=== PATIENT | female | born 1990 | race Hispanic/Latino ===

== ENCOUNTER 2018-05-15 20:50 | Day surgery (SDC) | payer BC, OTHER ==
[2018-05-15 21:24] VITALS: BP 145/73; TEMP 98.6; BMI 45.3
[2018-05-15] MEDS: Lactated Ringer's 1,000 ML IV SCH ×2 (21:35→22:20)
[2018-05-15] MEDS ORDERED: Promethazine HCl 25 MG/ML VIAL IM/IV PRN (21:49)
== END 2018-05-15 23:45 | disposition home or self-care (01) ==
LOC: L&D/OP 20:50
PROVIDERS: ATTEND Obstetrics & Gynecology
DX: O99.89 Other specified diseases and conditions complicating pregnancy, childbirth and the puerperium (principal); R10.2 Pelvic and perineal pain; R11.0 Nausea; Z3A.36 36 weeks gestation of pregnancy
CPT/HCPCS: 96360; 96361; 96375; 99282; J2550

== ENCOUNTER 2018-05-21 16:38 | Inpatient (IN) | payer OTHER ==
[~2018-05-21 16:38] MED LIST: Ketorolac Tromethamine 30 MG/ML VIAL ONE; Ondansetron PF 4 MG/2 ML Vial ONE; PHENYLEPHRINE-NS 100 MCG/ML 10 ML SYRINGE ONE
[2018-05-21] MEDS ORDERED: Zolpidem Tartrate 5 MG TAB PO PRN (16:48)
[2018-05-21] MEDS ORDERED: Promethazine HCl 25 MG/ML VIAL IM PRN ×2 (16:48→22:59)
[2018-05-21] MEDS ORDERED: Ondansetron PF 4 MG/2 ML Vial IVP PRN ×2 (16:48→22:51)
[2018-05-21] MEDS ORDERED: Bicitra 30 ML UDCUP PO SCH (17:00)
[2018-05-21] MEDS ORDERED: CEFAZOLIN/Water 2 GM/20 ML SYRINGE SLOW IVP SCH (17:00)
[2018-05-21] MEDS: Lactated Ringer's 1,000 ML IV SCH ×2 (17:20→18:42)
[2018-05-21 17:27] VITALS: BMI 45.3
[2018-05-21 17:39] LABS: Hemoglobin 11.5 g/dL (12.0-16.0); Mean Corpuscular HGB CONC 31.4 g/dL (32.0-36.0); Mean Corpuscular Hemoglobin 27.7 pg (27.0-31.0); Mean Corpuscular Volume 88.2 fL (78.0-98.0); Mean Platelet Volume 9.5 fL (7.4-10.4); Platelet Count 328 thou/uL (130-400); RBC Distribution Width 12.9 % (11.5-14.5); Red Blood Cell (RBC) Count 4.14 mill/uL (4.20-5.40); White Blood Cell (WBC) Count 12.6 thou/uL (4.8-10.8)
[2018-05-21 18:13] LABS: Syphilis Antibody Nonreactive (Nonreactive); Syphilis Antibody Index 0.06 S/CO (<1.00 Non-Reactive)
[2018-05-21 18:14] LABS: HBSAg Index 0.19 S/CO (0-0.99); Hep B Surf Ag Non-Reactive S/CO (NonReactive)
[2018-05-21] MEDS ORDERED: Milk Of Magnesia 30 ML UDCUP ONE (18:15)
[2018-05-21] MEDS ORDERED: Morphine PF 1 MG/ML SYR ONE (19:11)
[2018-05-21] MEDS ORDERED: Bupivacaine 0.75% W/DEXTROSE 8.25% 2 ML AMP ONE (19:11)
[2018-05-21] MEDS ORDERED: PHENYLEPHRINE-NS 100 MCG/ML 10 ML SYRINGE ONE (19:11)
[2018-05-21] MEDS ORDERED: Lidocaine 1% PF 5 ML VIAL ONE (19:11)
[2018-05-21] MEDS ORDERED: Oxytocin 10 UNITS/ML VIAL ONE ×2 (19:11→22:10)
[2018-05-21] MEDS ORDERED: ePHEDrine/0.9% NaCl/PF SYRINGE 50 mg/10 ml ONE (19:11)
[2018-05-21] MEDS ORDERED: Ondansetron PF 4 MG/2 ML Vial ONE (19:11)
[2018-05-21] MEDS ORDERED: Ketorolac Tromethamine 30 MG/ML VIAL ONE (19:12)
[2018-05-21] MEDS ORDERED: CEFAZOLIN/Water 2 GM/20 ML SYRINGE ONE (21:09)
[2018-05-21] MEDS ORDERED: Fentanyl 100 MCG/2 ML VIAL ONE (22:07)
[2018-05-21] MEDS ORDERED: diphenhydrAMINE 25 MG CAP PO PRN (22:51)
[2018-05-21] MEDS ORDERED: Lanolin Ointment 7 GM TUBE TOP PRN (22:51)
[2018-05-21] MEDS ORDERED: traMADol HCl 50 MG TAB PO PRN (22:54)
[2018-05-21] MEDS ORDERED: diphenhydrAMINE 50 MG/ML VIAL IVP PRN (22:59)
[2018-05-21] MEDS ORDERED: Naloxone HCl 0.4 mg/ml Vial IVP PRN ×2 (22:59)
[2018-05-21] MEDS ORDERED: Hydrocerin (Eucerin) Cream 120 gm Jar TOP PRN (22:59)
[2018-05-21] MEDS ORDERED: Promethazine HCl 25 MG SUPP PR PRN (22:59)
[2018-05-21] MEDS ORDERED: Naloxone HCl 0.4 mg/ml Vial IV PRN (22:59)
[2018-05-21] MEDS ORDERED: Communication Order-Pharmacy FS SCH (23:00)
[2018-05-21] MEDS ORDERED: NS / Oxytocin 40 units/1000ml 1,000 ML IV SCH (23:00)
[2018-05-21] MEDS ORDERED: diphenhydrAMINE 50 MG/ML VIAL ONE (23:48)
[2018-05-22] MEDS ORDERED: Morphine 4 MG/ML VIAL SLOW IVP PRN (00:16)
[2018-05-22] MEDS ORDERED: Morphine 4 MG/ML VIAL ONE (00:20)
[2018-05-22] MEDS: Ondansetron PF 4 MG/2 ML Vial IVP PRN ×2 (01:58→12:27)
--- NOTE | 2018-05-22 05:33 | OP ---
DATE OF SERVICE: 05/21/2018 PREOPERATIVE DIAGNOSES: 1. A 27-year-old G4, P1-0-2-1, at 37 weeks and 3 days with premature rupture of membranes, clear flu id at midnight that is approximately 22 hours at the time of delivery. 2. GBS negative. 3. Elevated body mass index greater than 36. 4. History of low transverse section for cephalopelvic disproportion. Plan for repeat cesa rean. 5. Anemia of . POSTOPERATIVE DIAGNOSES: 1. A 27-year-old G4, P1-0-2-1, at 37 weeks and 3 days with premature rupture of membranes, clear flu id at midnight that is approximately 22 hours at the time of delivery. 2. GBS negative. 3. Elevated body mass index greater than 36. 4. History of low transverse section for cephalopelvic disproportion. Plan for repeat cesa rean. 5. Anemia of . 6. Liveborn female with Apgars and weight unavailable at the time of dictation. CLINICAL HISTORY: This patient is a 27-year-old female, G4, P1-0-2-1 who presented to [facility] at 37 weeks and 3 days with complaint of leakage of fluid. She originally had several leakage o f fluid half and hour prior, but upon further investigation, she noted a rupture of membranes at appr oximately midnight the night prior. The patient was evaluated and had a positive Nitrazine test and amniotic fluid index of 3.4 with a normal Doptones. The patient was then advised to go to labor and delivery for a planned repeat low transverse section. Upon arrival, the patient was noted t o have a category 1 tracing without any noted contractions. She had been checked in the office and h er exam was 3 cm, 80% effaced, and -1 station. DETAILS OF PROCEDURE: The patient was taken to the operating room where spinal anesthesia was obtain ed. She was laid in the supine position with her legs with a leftward tilt and she was prepped and d raped in the usual sterile fashion. A Dodge catheter was placed and draining to gravity. After test ing for adequate anesthesia, an incision was made over her previous Pfannenstiel incision and this wa s carried down to the fascia. The fascia was nicked in the midline and then extended bilaterally. Bijal shay Aniya clamps were used x2 to elevate the superior fascial borders and these were released from th e superior rectus muscles with a combination of sharp and blunt dissection. The same was done on the posterior portion of the fascia. The rectus muscles were then in the midline and the merary toneum was then breached. The incision was then extended with combination of traction and sharp diss ection. The bladder flap was then created with Metzenbaums and the [place] forceps and the bladder w as reflected downwards. The incision was then made over a very thin window on the lower uterine segm ent and the clear fluid was noted. The incision was extended and the baby's head was then delivered through the incision by using the surgeon's hand and then traction and pressure. There was a nuchal cord that was reduced easily at the incision. The anterior shoulder followed by and the posterior sh oulder followed by the remainder of the 's body was delivered. The infant cried spontaneously. The cord was doubly clamped and cut and the cord blood was obtained. The was handed off to the team in attendance to the delivery. The uterus was then exteriorized and cleansed of al l debris and then the incision was closed in a running locking fashion and then an imbricating suture was then performed with 0 Vicryl. The bladder flap was then reapproximated with a 3-0 plain gut sut ure with excellent hemostasis. The gutters were cleansed of all debris and the Seprafilm was placed over the anterior surface of the uterus. The uterus was then placed back into the abdomen. The merary toneum was closed in a running fashion. The muscles were reapproximated with interrupted figure-of-e ight sutures and the prefascial gutters were cleansed of all debris and the fascia was then closed in a running fashion and the subcutaneous tissues were irrigated copiously and bleeding was corrected w ith Bovie cautery. The subcutaneous tissues were then closed with several interrupted sutures to prabhakar pproximate the subcutaneous layer. The skin was then closed with a 4-0 Monocryl and reinforced with Steri-Strips and Mastisol and a Tegaderm-Telfa pressure dressing. Patient tolerated the procedure we ll and was able to recover on labor and delivery in satisfactory condition with her infant. Again, t he infant was a female, weight is unavailable at the time of dictation. Apgars were 9 and 9 at one a nd five minutes respectively. There were no other issues surrounding this delivery. Estimated blood loss was approximately 300 mL. QBL was not calculated at the time of dictation. There were no othe r issues surrounding this delivery.
[2018-05-22] MEDS: Ketorolac Tromethamine 30 MG/ML VIAL IVP PRN ×2 (06:06→14:10)
[2018-05-22] MEDS ORDERED: Adacel (T-DAP) 0.5 ML VIAL IM ONE (09:00)
[2018-05-22] MEDS: Prenatal Vitamin 1 TAB PO SCH (09:22)
[2018-05-22] MEDS: Docusate Calcium (SURFAK) 240 MG CAP PO SCH ×2 (09:22→20:38)
[2018-05-22] MEDS ORDERED: Sodium Chloride 0.9% 10 ML ONE ×2 (12:18→14:02)
[2018-05-22] MEDS: Simethicone Chewable 80 MG TAB PO PRN (20:38)
[2018-05-22] MEDS: Ibuprofen 800 MG TAB PO SCH (20:38)
[2018-05-22] MEDS: traMADol HCl 50 MG TAB PO PRN (20:38)
[2018-05-22] MEDS ORDERED: Zolpidem Tartrate 5 MG TAB PO PRN (21:00)
[2018-05-23] MEDS: traMADol HCl 50 MG TAB PO PRN ×6 (02:18→22:24)
[2018-05-23] MEDS: Ibuprofen 800 MG TAB PO SCH ×3 (04:52→22:23)
[2018-05-23] MEDS ORDERED: Ibuprofen 800 MG TAB PO SCH (06:00)
[2018-05-23] MEDS: Simethicone Chewable 80 MG TAB PO PRN ×2 (09:51→17:52)
[2018-05-23] MEDS: Prenatal Vitamin 1 TAB PO SCH (09:51)
[2018-05-23] MEDS: Docusate Calcium (SURFAK) 240 MG CAP PO SCH ×2 (09:51→21:11)
[2018-05-24] MEDS: traMADol HCl 50 MG TAB PO PRN ×4 (02:38→14:07)
[2018-05-24] MEDS: Ibuprofen 800 MG TAB PO SCH ×2 (06:05→14:08)
[2018-05-24] MEDS: Prenatal Vitamin 1 TAB PO SCH (10:08)
[2018-05-24] MEDS: Docusate Calcium (SURFAK) 240 MG CAP PO SCH (10:09)
[2018-05-24 11:52] VITALS: BP 112/52; TEMP 98.3
== END 2018-05-24 14:45 | disposition home or self-care (01) | DRG 787 ==
LOC: L&D 16:38 → 3SW 05-22 00:57
PROVIDERS: ADMIT Obstetrics & Gynecology; ATTEND Obstetrics & Gynecology
PROC: 10D00Z1 Extraction of Products of Conception, Low, Open Approach (ICD-10-PCS; principal; 2018-05-21)
DX: O42.02 Full-term premature rupture of membranes, onset of labor within 24 hours of rupture (principal); Z68.42 Body mass index [BMI] 45.0-49.9, adult; O99.214 Obesity complicating childbirth; E66.9 Obesity, unspecified; Z3A.37 37 weeks gestation of pregnancy; Z37.0 Single live birth; O34.211 Maternal care for low transverse scar from previous cesarean delivery; O99.02 Anemia complicating childbirth; D64.9 Anemia, unspecified; O69.81X0 Labor and delivery complicated by cord around neck, without compression, not applicable or unspecified
CPT/HCPCS: 51702; 85027; 86780; 86850; 86900; 86901; 87340; J1200; J1885; J2001; J2270; J2274; J2405; J2590; J3010; J3490

== ENCOUNTER 2019-12-16 20:54 | Emergency (ER) | payer SELFPAY ==
[2019-12-16 21:25] LABS: Bacteria/HPF None Seen HPF (None Seen); Bilirubin Negative (Negative); Blood, Urine Negative (Negative); Clarity Clear (Clear); Glucose, Urine (Dipstick) Normal (Negative); Leukocyte Negative Leu/uL (Negative); Nitrite Negative (Negative); Protein, Urine (Dipstick) 50 mg/dL (Neg-Trace); WBC/HPF 0-3 HPF (0-3)
[2019-12-16 21:26] LABS: Pregnancy Test - Urine (BHCG) POSITIVE (Negative); Pregu Control Background? CLEAR/WHITE (CLR/WHITE); Pregu Control Bar Appear? YES (CONTROL BAR); Specific Gravity 1.038 (1.002-1.036)
[2019-12-16 21:37] LABS: #Lymphocytes 2.9 thou/uL (1.20-3.40); #Monocytes 0.6 thou/uL (0.11-0.59); #Neutrophils 9.1 thou/uL (1.40-6.50); %Basophils 0.2 % (0.0-1.0); %Eosinophils 0.4 % (0.0-10.0); %Lymphocytes 22.7 % (21.0-51.0); %Monocytes 4.9 % (0.0-10.0); %Neutrophils 71.8 % (42.0-75.0); Hemoglobin 12.9 g/dL (12.0-16.0); Mean Corpuscular HGB CONC 31.7 g/dL (32.0-36.0); Mean Corpuscular Hemoglobin 29.6 pg (27.0-31.0); Mean Corpuscular Volume 93.4 fL (78.0-98.0); Mean Platelet Volume 9.5 fL (7.4-10.4); Platelet Count 332 thou/uL (130-400); RBC Distribution Width 11.5 % (11.5-14.5); Red Blood Cell (RBC) Count 4.36 mill/uL (4.20-5.40); White Blood Cell (WBC) Count 12.7 thou/uL (4.8-10.8)
[2019-12-16 21:45] LABS: BHCG - Serum POSITIVE (NEGATIVE); Pregs Control Background? CLEAR/WHITE (CLR/WHITE); Pregs Control Bar Appear? YES (CONTROL BAR)
[2019-12-16] MEDS ORDERED: Ondansetron PF 4 MG/2 ML Vial ONE ×2 (22:09→23:50)
[2019-12-16 22:34] LABS: Albumin 4.3 g/dL (3.5-5.0)
[2019-12-16 22:35] LABS: Chloride 103 mmol/L (98-107); Potassium 3.3 mmol/L (3.5-5.1); Sodium 135 mmol/L (136-145)
[2019-12-16 22:36] LABS: Glucose 93 mg/dL (70-105)
[2019-12-16 22:37] LABS: Globulin 3.8 g/dL (2.4-3.5); Protein, Total 8.1 g/dL (6.0-8.3)
[2019-12-16 22:38] LABS: Anion Gap 12 mmol/L (10-20); Bilirubin, Total 0.3 mg/dL (0.2-1.2); Carbon Dioxide 23 mmol/L (22-29)
[2019-12-16 22:39] LABS: Alkaline Phosphatase 90 U/L (40-110)
[2019-12-16 22:40] LABS: BUN (Urea Nitrogen) 9 mg/dL (7.0-18.7); Calc. Creatinine Clearance 0 mL/min (70-130); Estimated GFR-MDRD Greater than 90
[2019-12-16 22:41] LABS: AST (SGOT) 14 U/L (5-34)
[2019-12-16 22:42] LABS: ALT (SGPT) 8 U/L (8-55)
--- NOTE | 2019-12-16 23:52 | ULT ---
Exam: Transabdominal pelvic ultrasound HISTORY: Cramping x2 weeks. Irregular periods. COMPARISON: None TECHNIQUE: Grayscale, color flow, Doppler imaging and spectral waveform analysis of the ovaries along with transabdominal imaging of the pelvis FINDINGS: Uterus is identified, without myometrial masses. Uterus measures 8.0 x 4.4 x 4.8 cm Within the endometrium is a gestational sac, yolk sac and pole. [place]-rump length is 0.75 cm co rresponding to gestational age of 6 weeks 5 days. heart tones with a rate of 124 bpm No subchorionic hemorrhage Right ovary has a normal echotexture, measuring 2.8 x 2.3 x 2.2 cm Left ovary has a normal echotexture, measuring 2.5 x 1.7 x 2.2 cm Fluid: None Ovarian Doppler: Vascular flow to the left and right ovary IMPRESSION: Single intrauterine gestation with heart tones. Gestational age by crown-rump length is 6 weeks 5 days.
[2019-12-17] MEDS ORDERED: Acetaminophen 500 MG TAB ONE (00:17)
== END 2019-12-17 00:15 | disposition home or self-care (01) ==
LOC: ERS 20:54
DX: O26.891 Other specified pregnancy related conditions, first trimester (principal); R10.9 Unspecified abdominal pain; O21.9 Vomiting of pregnancy, unspecified; O99.341 Other mental disorders complicating pregnancy, first trimester; F31.9 Bipolar disorder, unspecified; O99.331 Smoking (tobacco) complicating pregnancy, first trimester; F17.210 Nicotine dependence, cigarettes, uncomplicated; Z3A.01 Less than 8 weeks gestation of pregnancy
CPT/HCPCS: 36415; 76856; 80053; 81003; 81015; 81025; 84702; 84703; 85025; 86900; 86901; 93976; 96361; 96374; J2405

== ENCOUNTER 2020-10-14 18:04 | Emergency (ER) | payer OTHER ==
[2020-10-14 19:23] LABS: Bilirubin Negative (Negative); Blood, Urine Negative (Negative); Clarity Clear (Clear); Glucose, Urine (Dipstick) Normal (Negative); Ketone, Urine Negative (Negative); Leukocyte Negative Leu/uL (Negative); Nitrite Negative (Negative); Protein, Urine (Dipstick) Negative (Neg-Trace); Specific Gravity, Urine 1.011 (1.002-1.036); Urobilinogen Normal mg/dL (Less than 2); pH, Urine 6.5 (5.0-9.0)
[2020-10-14 19:24] LABS: #Eosinphils 0.1 thou/uL (0.0-0.7); #Lymphocytes 3.7 thou/uL (1.20-3.40); #Monocytes 0.7 thou/uL (0.11-0.59); #Neutrophils 7.5 thou/uL (1.40-6.50); %Basophils 0.2 % (0.0-1.0); %Eosinophils 0.7 % (0.0-10.0); %Monocytes 5.7 % (0.0-10.0); %Neutrophils 62.5 % (42.0-75.0); Hemoglobin 11.3 g/dL (12.0-16.0); Mean Corpuscular HGB CONC 30.9 g/dL (32.0-36.0); Mean Corpuscular Hemoglobin 27.3 pg (27.0-31.0); Mean Corpuscular Volume 88.4 fL (78.0-98.0); Mean Platelet Volume 8.4 fL (7.4-10.4); Platelet Count 346 thou/uL (130-400); RBC Distribution Width 13.1 % (11.5-14.5); Red Blood Cell (RBC) Count 4.13 mill/uL (4.20-5.40)
[2020-10-14] MEDS ORDERED: Ondansetron PF 4 MG/2 ML Vial ONE (19:33)
[2020-10-14 19:47] LABS: ALT (SGPT) 38 U/L (8-55); AST (SGOT) 24 U/L (5-34); Albumin 3.6 g/dL (3.5-5.0); Alkaline Phosphatase 85 U/L (40-110); Anion Gap 13 mmol/L (10-20); BUN (Urea Nitrogen) 7 mg/dL (7.0-18.7); Bilirubin, Total Less than 0.2 mg/dL (0.2-1.2); Calc. Creatinine Clearance 0 mL/min (70-130); Calcium 8.9 mg/dL (7.8-10.44); Carbon Dioxide 21 mmol/L (22-29); Chloride 103 mmol/L (98-107); Globulin 3.9 g/dL (2.4-3.5); Glucose 87 mg/dL (70-105); Lipase 22 U/L (8-78); Potassium 4.2 mmol/L (3.5-5.1); Protein, Total 7.5 g/dL (6.0-8.3); Sodium 133 mmol/L (136-145)
== END 2020-10-14 20:50 | disposition home or self-care (01) ==
LOC: ERS 18:04
DX: O21.9 Vomiting of pregnancy, unspecified (principal); O99.891 Other specified diseases and conditions complicating pregnancy; R10.30 Lower abdominal pain, unspecified; R10.814 Left lower quadrant abdominal tenderness; Z87.891 Personal history of nicotine dependence; Z3A.09 9 weeks gestation of pregnancy
CPT/HCPCS: 36415; 76856; 80053; 81003; 83690; 85025; 87086; 96374; J2405

== ENCOUNTER 2021-04-10 15:57 | Emergency (ER) | payer OTHER, SELFPAY ==
[2021-04-11 08:29] LABS: SARS-CoV-2 PCR by NAA Not Detected (NotDetected)
== END 2021-04-10 16:44 | disposition home or self-care (01) ==
LOC: ERS 15:57
DX: Z20.822 Contact with and (suspected) exposure to COVID-19 (principal)
CPT/HCPCS: 99283; U0003; U0005

== ENCOUNTER 2021-08-18 16:16 | Emergency (ER) | payer OTHER ==
[2021-08-19 12:22] LABS: SARS-CoV-2 PCR by NAA DETECTED (NotDetected)
== END 2021-08-18 18:01 | disposition home or self-care (01) ==
LOC: ERS 16:16
DX: U07.1 COVID-19 (principal); Z87.891 Personal history of nicotine dependence
CPT/HCPCS: 99283; U0003; U0005

== ENCOUNTER 2021-12-03 18:10 | Emergency (ER) | payer OTHER ==
[2021-12-03 18:52] LABS: #Eosinphils 0.1 thou/uL (0.0-0.7); #Lymphocytes 2.6 thou/uL (1.20-3.40); #Monocytes 0.4 thou/uL (0.11-0.59); #Neutrophils 6.1 thou/uL (1.40-6.50); %Basophils 0.2 % (0.0-1.0); %Eosinophils 1.1 % (0.0-10.0); %Monocytes 4.1 % (0.0-10.0); %Neutrophils 66.6 % (42.0-75.0); Hemoglobin 10.9 g/dL (12.0-16.0); Mean Corpuscular HGB CONC 30.4 g/dL (32.0-36.0); Mean Corpuscular Hemoglobin 25.6 pg (27.0-31.0); Mean Platelet Volume 8.6 fL (7.4-10.4); Platelet Count 364 thou/uL (130-400); RBC Distribution Width 13.4 % (11.5-14.5); Red Blood Cell (RBC) Count 4.27 mill/uL (4.20-5.40); White Blood Cell (WBC) Count 9.2 thou/uL (4.8-10.8)
[2021-12-03 19:02] LABS: BHCG - Serum Negative (NEGATIVE); Pregs Control Background? CLEAR/WHITE (CLR/WHITE); Pregs Control Bar Appear? YES (CONTROL BAR)
[2021-12-03 19:12] LABS: ALT (SGPT) Less than 7 U/L (8-55); AST (SGOT) 13 U/L (5-34); Alkaline Phosphatase 116 U/L (40-110); Anion Gap 12 mmol/L (10-20); BUN (Urea Nitrogen) 10 mg/dL (7.0-18.7); Bilirubin, Total Less than 0.2 mg/dL (0.2-1.2); Calc. Creatinine Clearance 0 mL/min (70-130); Carbon Dioxide 25 mmol/L (22-29); Chloride 104 mmol/L (98-107); Globulin 3.7 g/dL (2.4-3.5); Glucose 102 mg/dL (70-105); Potassium 3.9 mmol/L (3.5-5.1); Protein, Total 7.7 g/dL (6.0-8.3); Sodium 137 mmol/L (136-145)
[2021-12-03] MEDS ORDERED: Ondansetron PF 4 MG/2 ML Vial ONE (19:58)
[2021-12-03] MEDS ORDERED: Morphine 4 MG/ML VIAL ONE ×2 (19:58→22:17)
[2021-12-03 20:02] LABS: Bilirubin Negative (Negative); Blood, Urine Negative (Negative); Clarity Clear (Clear); Glucose, Urine (Dipstick) Normal (Negative); Ketone, Urine Negative (Negative); Leukocyte Negative Leu/uL (Negative); Nitrite Negative (Negative); Protein, Urine (Dipstick) Negative (Neg-Trace); Specific Gravity, Urine 1.021 (1.002-1.036); Urobilinogen Normal mg/dL (Less than 2); pH, Urine 6.5 (5.0-9.0)
[2021-12-03] MEDS ORDERED: Ketorolac Tromethamine 30 MG/ML VIAL ONE (22:18)
== END 2021-12-03 22:47 | disposition home or self-care (01) ==
LOC: ERS 18:10
DX: K80.20 Calculus of gallbladder without cholecystitis without obstruction (principal); Z87.891 Personal history of nicotine dependence
CPT/HCPCS: 36415; 76705; 80053; 81003; 83605; 84703; 85025; 94760; 96374; 96375; J1885; J2270; J2405

== ENCOUNTER 2021-12-26 00:02 | Observation (INO) | payer OTHER ==
[2021-12-26 00:58] LABS: #Basophils 0.1 thou/uL (0.0-0.2); #Eosinphils 0.1 thou/uL (0.0-0.7); #Monocytes 0.6 thou/uL (0.11-0.59); #Neutrophils 4.8 thou/uL (1.40-6.50); %Basophils 1.2 % (0.0-1.0); %Eosinophils 1.2 % (0.0-10.0); %Lymphocytes 41.8 % (21.0-51.0); %Monocytes 6.2 % (0.0-10.0); %Neutrophils 49.7 % (42.0-75.0); Hemoglobin 10.3 g/dL (12.0-16.0); Mean Corpuscular HGB CONC 29.8 g/dL (32.0-36.0); Mean Corpuscular Hemoglobin 24.5 pg (27.0-31.0); Mean Corpuscular Volume 82.2 fL (78.0-98.0); Mean Platelet Volume 8.9 fL (7.4-10.4); Platelet Count 315 thou/uL (130-400); RBC Distribution Width 13.7 % (11.5-14.5); Red Blood Cell (RBC) Count 4.21 mill/uL (4.20-5.40); White Blood Cell (WBC) Count 9.7 thou/uL (4.8-10.8)
[2021-12-26] MEDS ORDERED: Ondansetron PF 4 MG/2 ML Vial ONE ×2 (01:08→14:12)
[2021-12-26 01:19] LABS: ALT (SGPT) 9 U/L (8-55); AST (SGOT) 12 U/L (5-34); Albumin 3.9 g/dL (3.5-5.0); Alkaline Phosphatase 99 U/L (40-110); Anion Gap 10 mmol/L (10-20); BUN (Urea Nitrogen) 10 mg/dL (7.0-18.7); Bilirubin, Total Less than 0.2 mg/dL (0.2-1.2); Calc. Creatinine Clearance 0 mL/min (70-130); Calcium 8.9 mg/dL (7.8-10.44); Carbon Dioxide 26 mmol/L (22-29); Chloride 103 mmol/L (98-107); Globulin 3.6 g/dL (2.4-3.5); Glucose 95 mg/dL (70-105); Lipase 35 U/L (8-78); Potassium 3.7 mmol/L (3.5-5.1); Protein, Total 7.5 g/dL (6.0-8.3); Sodium 135 mmol/L (136-145)
[2021-12-26] MEDS ORDERED: Ketorolac Tromethamine 30 MG/ML VIAL ONE ×2 (01:24→14:12)
[2021-12-26 02:24] LABS: Bilirubin Negative (Negative); Blood, Urine Negative (Negative); Clarity Clear (Clear); Glucose, Urine (Dipstick) Normal (Negative); Ketone, Urine Negative (Negative); Leukocyte Negative Leu/uL (Negative); Nitrite Negative (Negative); Protein, Urine (Dipstick) Negative (Neg-Trace); Specific Gravity, Urine 1.019 (1.002-1.036); Urobilinogen Normal mg/dL (Less than 2)
[2021-12-26 02:29] LABS: Pregnancy Test - Urine (BHCG) Negative (Negative); Pregu Control Background? CLEAR/WHITE (CLR/WHITE); Pregu Control Bar Appear? YES (CONTROL BAR); Specific Gravity 1.019 (1.002-1.036)
[2021-12-26] MEDS ORDERED: Ketorolac Tromethamine 30 MG/ML VIAL IVP PRN (03:24)
[2021-12-26] MEDS ORDERED: Morphine 2 MG/ML VIAL SLOW IVP PRN ×2 (03:25→06:11)
[2021-12-26] MEDS ORDERED: Ondansetron PF 4 MG/2 ML Vial IVP PRN ×2 (03:30→16:29)
[2021-12-26 03:35] VITALS: BMI 48.2
[2021-12-26] MEDS: Lactated Ringer's 1,000 ML IV SCH ×2 (03:58→13:28)
[2021-12-26 05:05] LABS: SARS-CoV-2 NAA Rapid Test Not Detected (NotDetected)
[2021-12-26] MEDS ORDERED: Morphine 4 MG/ML VIAL SLOW IVP PRN ×2 (06:11→16:29)
[2021-12-26] MEDS ORDERED: fentaNYL Citrate/PF 100 MCG/2 ML SYRINGE ONE (13:55)
[2021-12-26] MEDS ORDERED: Midazolam HCl 2 mg/2 ml Vial ONE (13:55)
[2021-12-26] MEDS ORDERED: HYDROmorphone 0.5 MG/0.5 ML SYRINGE ONE ×3 (13:55→15:38)
[2021-12-26] MEDS ORDERED: cefOXitin 2 GM VIAL ONE (13:59)
[2021-12-26] MEDS ORDERED: Sodium Chloride 0.9% 100 ML ONE (13:59)
[2021-12-26] MEDS ORDERED: Bupivacaine 0.25% HCL 30 ML VIAL ONE (13:59)
[2021-12-26] MEDS ORDERED: Dexamethasone 20 MG/5 ML VIAL ONE (14:12)
[2021-12-26] MEDS ORDERED: Lidocaine 1% PF 5 ML VIAL ONE (14:12)
[2021-12-26] MEDS ORDERED: Succinylcholine 200 MG/10 ml SYRINGE FS ONE (14:12)
[2021-12-26] MEDS ORDERED: Glycopyrrolate 0.2 MG/ML 5 ML SYRINGE ONE (14:12)
[2021-12-26] MEDS ORDERED: Rocuronium Bromide 10 MG/ML (10ML VIAL) ONE (14:12)
[2021-12-26] MEDS ORDERED: PROPOFOL 200 MG/20 ML VIAL ONE (14:12)
[2021-12-26] MEDS ORDERED: Lidocaine 1% w/Epinephrine 1:100K 20 ML VIAL ONE (14:18)
[2021-12-26] MEDS ORDERED: HYDROmorphone 2 MG/ML VIAL SLOW IVP PRN (15:05)
[2021-12-26] MEDS ORDERED: Ondansetron HCl/PF 4 MG/2 ML Vial IVP PRN (15:05)
[2021-12-26] MEDS ORDERED: Promethazine HCl 25 MG/ML VIAL IM PRN ×2 (15:05→16:29)
[2021-12-26] MEDS ORDERED: Promethazine HCl 25 MG/ML VIAL IVPB PRN (15:05)
[2021-12-26] MEDS ORDERED: Meperidine HCl/PF 25 MG/ML VIAL SLOW IVP PRN (15:05)
[2021-12-26] MEDS ORDERED: Fentanyl 100 MCG/2 ML VIAL ONE (15:06)
[2021-12-26] MEDS ORDERED: Meperidine HCl/PF 25 MG/ML VIAL ONE (15:15)
[2021-12-26] MEDS ORDERED: Promethazine HCl 25 MG/ML VIAL ONE (15:35)
[2021-12-26] MEDS ORDERED: Mag-Al 1200 mg/1200 mg/30 ML UDCUP PO PRN (16:29)
[2021-12-26] MEDS ORDERED: Dextrose 5% in Water 1,000 ML IV PRN (16:29)
[2021-12-26] MEDS ORDERED: Dextrose 50% Abboject 50 ML SYRINGE SLOW IVP PRN (16:29)
[2021-12-26] MEDS ORDERED: D5 1/2 NS w/20 mEq KCL 1,000 ML IV SCH (16:29)
[2021-12-26] MEDS ORDERED: hydrALAZINE 20 MG/ML VIAL SLOW IVP PRN (16:29)
[2021-12-26] MEDS ORDERED: Calcium Carbonate 500 MG ChewTAB PO PRN (16:29)
[2021-12-26] MEDS ORDERED: HYDROcodone/Acetaminophen 10/325 mg Tablet PO PRN ×2 (16:29)
[2021-12-26 16:48] VITALS: BP 101/50; TEMP 97.7
[2021-12-26] MEDS ORDERED: Famotidine 20 MG TAB PO SCH (21:00)
[2021-12-26] MEDS ORDERED: Famotidine/PF 20 mg/2ml Vial SLOW IVP SCH (21:00)
== END 2021-12-26 19:50 | disposition home or self-care (01) ==
LOC: ERS 00:02 → INTOOBSV 01:25 → MSONC 01:25
PROVIDERS: ADMIT Surgery; ATTEND Surgery
PROC: 0FT44ZZ Resection of Gallbladder, Percutaneous Endoscopic Approach (ICD-10-PCS; principal; 2021-12-26)
DX: K80.12 Calculus of gallbladder with acute and chronic cholecystitis without obstruction (principal); E66.9 Obesity, unspecified; Z68.42 Body mass index [BMI] 45.0-49.9, adult; Z87.891 Personal history of nicotine dependence; Z20.822 Contact with and (suspected) exposure to COVID-19
CPT/HCPCS: 36415; 76705; 80053; 81003; 81025; 83690; 85025; 88304; 93005; C1713; J0694; J1100; J1170; J1885; J2175; J2250; J2270; J2405; J2550; J2704; J3010; J3480; J3490; J7120; S0020; U0002

== ENCOUNTER 2024-10-01 17:55 | Emergency (ER) | payer MEDICAID | END 2024-10-01 18:55 | disposition home or self-care (01) | LOC: ERS 17:55 | DX: G56.01 Carpal tunnel syndrome, right upper limb (principal); F17.290 Nicotine dependence, other tobacco product, uncomplicated | CPT/HCPCS: 99283 ==